=== PATIENT | male | born 1970 | race Caucasian/White ===

== ENCOUNTER 2021-05-31 14:17 | Outpatient (REF) | payer SELFPAY ==
--- NOTE | 2021-06-03 13:42 | MHC.AU.HFU ---
Hearing Instrument Follow-Up- Binaural Date of Visit: 05/31/21 Alteration Manager Used: ASL- By Video Right Ear: Business Management Intern: Phonak Model: Sienna Q50-UP Serial Number: [id number] Repair Warranty: 01/14/2018 Loss and Damage Warranty: Used for the right instrument Service Plan: Battery Size: 675 Dispensed By: [facility] Date of Fittin11/14/2014 Left Ear: Business Management Intern: Phonak Model: Sienna Q50-UP Serial Number: [id number] Repair Warranty: 01/14/2018 Loss and Damage Warranty: 01/14/2018 Service Plan: Battery Size: 675 Color: Silver Dispensed By: [facility] Date of Fittin11/14/2014 Follow-Up Summary: Patient reports that he is getting feedback when he is on the automatic program, but not on program 1 (music). He feels he hears speech better on program 1 and would like to make it his default program. Cleaned hearing aids and molds. Retubed molds. Replaced micorphone covers. Cleaned debris out of battery compartments. Hearing aids are amplifying. Made Program 1 the [place] program. Re-ran feedback protection manager. Recommendations: If feedback persists, new molds may be needed. The possibility of new amplification was discussed. Patient feels that some new features, such as the phone compatibility, may be beneficial for work. Patient plans to contact [facility] to discuss new amplification. Diagnosis Code(s): Primary Diagnosis: H90.3 Bilateral Sensorineural Hearing Loss Signature: Provider: Gaudencio Castle, JUANY-A
== END 2021-05-31 14:18 | disposition home or self-care (01) ==
LOC: HO.HAP 14:17
PROVIDERS: Visit Provider Family Medicine
DX: Z46.1 Encounter for fitting and adjustment of hearing aid (principal); H90.3 Sensorineural hearing loss, bilateral
CPT/HCPCS: 99499

== ENCOUNTER 2022-06-16 13:13 | Outpatient (REF) | payer SELFPAY ==
--- NOTE | 2022-06-16 14:40 | MHC.AU.HFU ---
Hearing Instrument Follow-Up- Binaural Date of Visit: 06/16/22 Right Ear: Rail Car Repairman: Phonak Sinena P70 UP SN: [id number] Color: Silver Walter Repair Warranty: 05/05/2025 Loss and Damage Warranty: 05/05/2025 Battery Size: 675 Type of Mold: Microsonic Medi-caty Plus clear shell with tube lock plus Dispensed By: [facility] Date of Fittin03/24/2022 Left Ear: Rail Car Repairman: Phonak Sienna P70 UP SN: [id number] Color: Silver Walter Repair Warranty: 05/05/2025 Loss and Damage Warranty: 05/05/2025 Battery Size: 675 Type of Mold: Microsonic Medi-caty Plus clear shell Dispensed By: [facility] Date of Fittin03/24/2022 Follow-Up Summary: Anastacio returned to pharmacy picking technician his remade right ear mold and readjust the programming. He arrived reporting that his right hearing aid is not working and the tone hook is broken and that he cannot connect his left hearing aid to his cell phone. He has been using his left hearing aid on his right ear. Cleaned the right hearing aid and replaced tone hook. Initially, listening check demonstrated hearing aid was working well after replacing the tone hook. However, the hearing aid would not connect to the [employer] programming software and eventually went again even with a new battery. Fit new right ear mold on left hearing aid for Anastacio to use in the meantime (hearing aids are programmed similarly). Ear mold was comfortable with minimal feedback in office. Successfully reconnected his left hearing aid to his cell phone. Anastacio is using his left hearing aid with new right ear mold on his right ear and also has his old right ear mold for back up and he has his left ear mold to hold until his other hearing aid is back from repair. His right hearing aid will be sent for in-warranty repair. Once his right hearing aid returns from repair, his hearing aids will need to be reprogrammed as binaural pair, fit to appropriate ears, and his right hearing aid adjusted per notes from 03/24/2022. Recommendations: Patient will be contacted when materials have arrived. Diagnosis Code(s): Primary Diagnosis: H90.3 Bilateral Sensorineural Hearing Loss Signature: Provider: Shanae Garcia, [facility]
== END 2022-06-16 13:14 | disposition home or self-care (01) ==
LOC: HO.HAP 13:13
PROVIDERS: Visit Provider Family Medicine
DX: Z13.89 Encounter for screening for other disorder (principal)

== ENCOUNTER 2022-08-04 10:27 | Outpatient (REF) | payer SELFPAY | END 2022-08-04 10:28 | disposition home or self-care (01) | LOC: HO.HAP 10:27 | PROVIDERS: Visit Provider Family Medicine | DX: Z13.89 Encounter for screening for other disorder (principal) ==

== ENCOUNTER 2023-03-27 14:48 | Outpatient (REF) | payer SELFPAY | END 2023-03-27 14:49 | disposition home or self-care (01) | LOC: HO.HAP 14:48 | PROVIDERS: Visit Provider Family Medicine | DX: Z13.89 Encounter for screening for other disorder (principal) ==